=== PATIENT | male | born 1965 | race Caucasian/White ===

== ENCOUNTER 2020-05-26 12:01 | Emergency (ER) | payer MEDICARE, OTHER ==
[2020-05-26 12:07] VITALS: RESP 18
[2020-05-26] MEDS ORDERED: FLUORESCEIN STRIPS 1 MG STRIP BOTH EYES ONE (12:29)
[2020-05-26] MEDS ORDERED: PROPARACAINE 0.5% OPHTH DROPS 15 ML BTL RIGHT EYE STA (12:29)
--- NOTE | 2020-05-26 12:30 | ED ---
Eye Problem HPI - General Chief complaint: Eye Problems Stated complaint: lt eye vision problem Time Seen by Provider: 05/26/20 12:24 Source: patient Mode of arrival: ambulatory Limitations: no limitations - History of Present Illness Initial comments: Patient is a 54-year-old male presenting to the emergency department with a chief complaint of an eye problem. Patient reports earlier this week he had difficulties with focusing with his left eye. States that briefly resolved on its own. Patient reports he woke up this morning he noticed a "black blob" on the bottom of his left eye. Patient reports it also appears to be a black floater that has been gradually creeping up in his vision. Patient reports about 2 years ago he began wearing glasses. He denies any trauma to the eye. Denies history of diabetes. - Related Data Allergies Allergy/AdvReac Type Severity Reaction Status Date / Time No Known Allergies Allergy Verified 05/26/20 12:07 Review of Systems ROS Statement: Those systems with pertinent positive or pertinent negative responses have been documented in the HPI. ROS Other: All systems not noted in ROS Statement are negative. Past Medical History Past Medical History: No Reported History History of Any Multi-Drug Resistant Organisms: None Reported Past Surgical History: Orthopedic Surgery Past Psychological History: No Psychological Hx Reported Smoking Status: Never smoker Past Alcohol Use History: Occasional Past Drug Use History: None Reported General Exam Limitations: no limitations General appearance: alert, in no apparent distress Head exam: Present: atraumatic, normocephalic, normal inspection Eye exam: Present: normal appearance, PERRL, EOMI Pupils: Present: normal accommodation, other (Limited funduscopic examination reveals no significant changes in the retina in either eye.) ENT exam: Present: normal exam, normal oropharynx, mucous membranes moist, TM's normal bilaterally Neck exam: Present: normal inspection, full ROM. Absent: tenderness Respiratory exam: Present: normal lung sounds bilaterally. Absent: respiratory distress, wheezes, rales Cardiovascular Exam: Present: regular rate, normal rhythm, normal heart sounds Extremities exam: Present: normal inspection, full ROM, normal capillary refill. Absent: tenderness Back exam: Present: normal inspection, full ROM. Absent: tenderness, CVA ten derness (R), CVA tenderness (L) Neurological exam: Present: alert, oriented X3, normal gait Psychiatric exam: Present: normal affect, normal mood Skin exam: Present: warm, dry, intact, normal color Course Vital Signs 05/26/20 12:02 Temperature 98.1 F Pulse Rate 72 Respiratory 18 Rate Blood Pressure 131/81 O2 Sat by Pulse 100 Oximetry Medical Decision Making - Medical Decision Making Patient is 54-year-old male presenting to emergency department for chief complaint of eye problems. On physical examination, there is no trauma to the eye. Externally the eye appears unremarkable. Funduscopic examination is limited reveals no significant changes in the retina of either eye. Visual acuity is 20/20 bilaterally. 20/20 in the right eye and 20/25 in the left eye which is the affected eye. I spoke with who who suggested the patient can be seen early in the morning in his office. Strict return parameters were thoroughly discussed the patient was understanding and agreeable. Case discus sed physician. Disposition Clinical Impression: Visual discomfort, left eye Disposition: HOME SELF-CARE Condition: Stable Additional Instructions: Follow-up with at 8am tomorrow. Is patient prescribed a controlled substance at d/c from ED?: No Referrals: None,Stated [Primary Care Provider] - 1-2 days Oniel Farmer MD [STAFF PHYSICIAN] - 1-2 days Time of Disposition: 13:29
[2020-05-26 14:14] VITALS: BP 114/81; PULSE 64; TEMP 98
== END 2020-05-26 14:14 | disposition home or self-care (01) ==
LOC: EC 12:01
DX: H53.142 Visual discomfort, left eye (principal)
CPT/HCPCS: 99282

== ENCOUNTER → 2020-07-08 | Outpatient (CLI) | payer OTHER ==
[2020-07-08 16:13] LABS: Basophils # (A) 0.1 k/uL (0-0.2); Basophils % (A) 1 %; Eosinophils # (A) 0.3 k/uL (0-0.7); Eosinophils % (A) 4 %; HCT 43.9 % (39.0-53.0); HGB 14.9 gm/dL (13.0-17.5); Lymphocytes # (A) 2.1 k/uL (1.0-4.8); Lymphocytes % (A) 28 %; MCH 32.3 pg (25.0-35.0); MCHC 33.9 g/dL (31.0-37.0); MCV 95.2 fL (80.0-100.0); Mean Platelet Volume 6.8; Monocytes # (A) 0.4 k/uL (0-1.0); Monocytes % (A) 6 %; Neutrophils # (A) 4.5 k/uL (1.3-7.7); Neutrophils % (A) 59 %; Platelet Count 243 k/uL (150-450); RBC 4.61 m/uL (4.30-5.90); RDW 11.8 % (11.5-15.5); WBC 7.6 k/uL (3.8-10.6)
[2020-07-09 00:25] LABS: ALT 16 U/L (10-49); AST 23 U/L (14-35); African American GFR (CKD) 115.7 (60.0-200.0); Albumin/Globulin Ratio 2.09 (1.60-3.17); Alkaline Phosphatase 51 U/L (41-126); BUN/Creat Ratio 21.25 Ratio (12.00-20.00); Calcium 9.7 mg/dL (8.7-10.3); Carbon Dioxide 26.4 mmol/L (21.6-31.8); Chloride 103 mmol/L (96-109); Chol/HDL Ratio 2.38; Cholesterol 231 mg/dL (0-200); Globulin 2.2 g/dL (1.6-3.3); Glucose 86 mg/dL (70-110); Non-African American GFR(CKD) 99.9 (60.0-200.0); Potassium 4.1 mmol/L (3.5-5.5); Sodium 139 mmol/L (135-145); Total Bilirubin 1.5 mg/dL (0.2-1.2); Total Protein 6.8 g/dL (6.2-8.2); Triglycerides <50.0 mg/dL (0.0-149.0)
[2020-07-09 00:33] LABS: PSA Annual Screen 3.3 ng/mL (0.0-4.0)
== END | disposition home or self-care (01) ==
LOC: LABWHC1 15:38
PROVIDERS: ATTEND Family Medicine
DX: Z00.00 Encounter for general adult medical examination without abnormal findings (principal); R35.1 Nocturia
CPT/HCPCS: 80061; 80053; 85025; 36415; G0103

== ENCOUNTER 2020-08-29 11:00 | Day surgery (SDC) | payer OTHER ==
[2020-08-29 12:00] VITALS: RESP 16; TEMP 98.9
[2020-08-29] MEDS ORDERED: LACTATED RINGERS 1,000 ML IV SCH (12:02)
[2020-08-29] MEDS ORDERED: LIDOCAINE 1% (10MG/ML) FOR IV START INTRADERMA PRN (12:02)
[2020-08-29] MEDS ORDERED: LIDOCAINE 1% (10MG/ML) FOR IV START INTRADERMA ONE (12:16)
[2020-08-29] MEDS ORDERED: PROPOFOL 10 MG/ML 20 ML VIAL IV ONE (12:47)
[2020-08-29] MEDS ORDERED: LIDOCAINE 1% INJ 10MG/ML (20 ML MDV) ONE (12:47)
[2020-08-29] MEDS ORDERED: fentaNYL (PF) 50 MCG/ML 2 ML AMP ONE (12:47)
[2020-08-29] MEDS ORDERED: MIDAZOLAM 2 MG/2 ML VIAL ONE (12:47)
--- NOTE | 2020-08-29 12:50 | P.GSHP ---
History of Present Illness H&P Date: 08/29/20 Chief Complaint: Screening colonoscopy Is a 54-year-old male been safe for screening colonoscopy. He's never had a colonoscopy before. Past Medical History Past Medical History: No Reported History History of Any Multi-Drug Resistant Organisms: None Reported Past Surgical History: Orthopedic Surgery Additional Past Surgical History / Comment(s): DETACHED RETINA REPAIR 05/2020/ LEFT FEMUR ORIF, RIGHT HAND SURG, MAXILLOFACIAL REPAIR Past Anesthesia/Blood Transfusion Reactions: No Reported Reaction Past Psychological History: No Psychological Hx Reported Smoking Status: Never smoker Past Alcohol Use History: Occasional Past Drug Use History: None Reported Medications and Allergies Home Medications Medication Instructions Recorded Confirmed Type No Known Home Medications 08/29/20 08/29/20 History Allergies Allergy/AdvReac Type Severity Reaction Status Date / Time No Known Allergies Allergy Verified 08/29/20 12:00 Surgical - Exam Vital Signs Temp Pulse Resp BP Pulse Ox 98.9 F 76 16 126/79 98 08/29/20 11:53 08/29/20 11:53 08/29/20 11:53 08/29/20 11:53 08/29/20 11:53 - General well developed, well nourished, no distress - Eyes PERRL - ENT normal pinna - Neck no masses - Respiratory normal expansion - Cardiovascular Rhythm: regular - Abdomen Abdomen: soft, non tender Assessment and Plan Assessment: We will perform screening colonoscopy
--- NOTE | 2020-08-29 13:06 | P.OP ---
Date of Procedure: 08/29/20 Preoperative Diagnosis: Screening colonoscopy Postoperative Diagnosis: Diverticulosis Procedure(s) Performed: Colonoscopy Anesthesia: MAC Surgeon: Georgi Hoang Pathology: none sent Condition: stable Disposition: PACU Description of Procedure: The patient's placed on the endoscopy table in the lateral position. She received IV sedation. Digital rectal exam was performed which revealed no abnormalities. Flexible colonoscope was then placed patient anus passed throughout the entire colon. The ileocecal valve was visually is. The cecum, ascending and transverse colon appeared normal. In the descending and sigmoid colon there were diverticular changes. There is no evidence of esophagitis. Th e scope was then brought back the rectum and this appeared normal. Scope withdrawn for patient.
[2020-08-29 13:34] VITALS: BP 113/71; PULSE 67
== END 2020-08-29 13:56 | disposition home or self-care (01) ==
LOC: ORWHC2ENDO 11:00
PROVIDERS: ATTEND Surgery
DX: Z12.11 Encounter for screening for malignant neoplasm of colon (principal); K57.30 Diverticulosis of large intestine without perforation or abscess without bleeding; Z98.890 Other specified postprocedural states
CPT/HCPCS: J2250; J2001; J3010; J2704; G0121; 45378